=== PATIENT | male | born 1975 | race Caucasian/White ===

== ENCOUNTER 2017-07-02 13:13 | Emergency (ER) | payer OTHER, MEDICAID ==
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
[2017-07-02 13:33] LABS: % IMMATURE GRANULYOCYTES 0.5 % (0.0-1.1); ABSOLUTE IMMATURE GRANULOCYTES 0.03 10^3/uL (0.00-0.10); ADD DIFF? NO; ADD MORPH? NO; ADD SCAN? NO; ATYPICAL LYMPHOCYTE FLAG 10 (0-99); FRAGMENT RBC FLAG 0 (0-99); HEMATOCRIT 36.5 % (40.0-51.0); LEFT SHIFT FLG 0 (0-99); LIPEMIA HEMOLYSIS FLAG 90 (0-99); MEAN CELL HEMOGLOBIN 30.4 pg (27.9-34.1); MEAN CELL HEMOGLOBIN CONCENTR. 35.6 g/dL (32.4-36.7); MEAN CELL VOLUME 85.3 fL (81.5-99.8); PLATELET CLUMPS FLAG 60 (0-99); PLATELET COUNT 332 10^3/uL (150-400); RED BLOOD CELL COUNT 4.28 10^6/uL (4.40-6.38); RED CELL DISTRIBUTION WIDTH 13.1 % (11.5-15.2)
--- NOTE | 2017-07-02 13:34 | CPEKG ---
Heart Rate: 79 RR Interval: 759 P-R Interval: 156 QRSD Interval: 104 QT Interval: 372 QTC Interval: 427 P [place]: 52 QRS [place]: 39 T Wave [place]: 40 EKG Severity - NORMAL ECG - EKG Impression: SINUS RHYTHM Electronically Signed By: Rika Mcmullen 02-Jul-2017 15:20:40
[2017-07-02 13:50] LABS: ANION GAP 11 mEq/L (8-16); CALCIUM 9.5 mg/dL (8.5-10.4); CARBON DIOXIDE 20 mEq/l (22-31); CHLORIDE 109 mEq/L (97-110); CREATININE 1.4 mg/dL (0.7-1.3); GLOMERULAR FILTRATION RATE 56; GLUCOSE 89 mg/dL (70-100); POTASSIUM 4.5 mEq/L (3.5-5.2); SODIUM 140 mEq/L (134-144)
[2017-07-02 14:01] LABS: TROPONIN I < 0.012 ng/mL (0.000-0.034)
[2017-07-02 14:05] VITALS: TEMP 97.9
[2017-07-02] MEDS ORDERED: IOPAMIDOL (ISOVUE-300) 100 ML BTL ONE (16:48)
[2017-07-02] MEDS ORDERED: QUEtiapine FUMARATE 200 MG TAB PO ONE (17:06)
[2017-07-02 17:52] VITALS: BP 98/72; PULSE 74; RESP 16; O2SAT 96
--- NOTE | 2017-07-02 18:14 | ASMTCMCOM ---
CM Note CM Note Notes: Spoke with patient about recent move back to [place] and homeless resources. Patient moved from [place] about 1 week ago, "because frankly, I smoke pot for pain control." Patient states he is out of Seroquel, his last dose was yesterday. Patient requesting tonight's dose to be provided. Patient states he will plan on following up with [facility] tomorrow in order to establish primary care and mental health services. Patient has gone through the [facility] and has been staying at the [place] [facility]. Patient provided [facility] pass [facility] get [facility]. Patient provided information on [facility] homeless drop-in hours and is aware PC will be at the [facility] from 8a-10am tomorrow morning. This CM called [facility] ([phone]) to notify them of patient's arrival tonight and to confirm he was able to stay there. Patient does not have a cell phone or any way to be contacted. Patient is pleasant and appreciative of assistance. Date Signed: 07/02/2017 06:13 PM Electronically Signed By:Maria Antonia Mcneal RN
--- NOTE | 2017-07-02 18:16 | ASDISCHSUM ---
Discharge Information Plan Status:Homeless/Prison Medically Cleared to Leave: Discharge Date:07/02/2017 06:02 PM CM D/C Disposition:Against Medical Advice ADT D/C Disposition:Against Medical Advice Projected Discharge Date:07/02/2017 06:02 PM Transportation at D/C:Bus Ticket Discharge Delay Reason: Follow-Up Date:07/02/2017 06:02 PM Discharge Slot: Final Diagnosis: Placement Information Patient Contact Information Contact Name:ALBERT Relationship:Mother Address: Work Phone: City: [facility] Phone: State/Zip Code: Email: Financial Information Financial Class: Primary Plan Desc:MEDICARE OUTPATIENT Primary Plan Number:[id number] Secondary Plan Desc:MEDICAID HEALTH [place] OP Secondary Plan Number:[id number] Assessment Information LACE LACE Acuity / Level of Care Answers: No. Emergency dept visits in Answers: 1 last 6 months Score: 1 Date Signed: 07/02/2017 04:15 PM Electronically Signed By:Maria Antonia Mcneal RN [facility] CM Progress Note CM Note CM Note Notes: Spoke with patient about recent move back to [place] and homeless resources. Patient moved from [place] about 1 week ago, "because frankly, I smoke pot for pain control." Patient states he is out of Seroquel, his last dose was yesterday. Patient requesting tonight's dose to be provided. Patient states he will plan on following up with [facility] tomorrow in order to establish primary care and mental health services. Patient has gone through the [facility] and has been staying at the [facility]. Patient provided bus pass to get back to long term. Patient provided information on [facility] homeless drop-in hours and is aware PC will be at the long term from 8a-10am tomorrow morning. This CM called [facility] ([phone]) to notify them of patient's arrival tonight and to confirm he was able to stay there. Patient does not have a cell phone or any way to be contacted. Patient is pleasant and appreciative of assistance. Date Signed: 07/02/2017 06:13 PM Electronically Signed By:Maria Antonia Mcneal RN Intervention Information
== END 2017-07-02 18:02 | disposition left against medical advice (07) ==
LOC: EDUNIT#
DX: D64.9 Anemia, unspecified (principal); K64.9 Unspecified hemorrhoids
CPT/HCPCS: 71020; 74177; 93005; 99285; Q9967

== ENCOUNTER 2017-07-19 17:05 | Emergency (ER) | payer OTHER, MEDICAID ==
[2017-07-19 17:15] VITALS: BP 148/76; PULSE 56; RESP 20; TEMP 98.2; O2SAT 97
--- NOTE | 2017-07-19 17:37 | EDPHY ---
H & P Time Seen by Provider: 07/19/17 17:08 HPI/ROS: HPI Smoke marijuana. Anxious. 41-year-old male, homeless, was at the [facility] halfway. He reports that he smokes marijuana. He reports after this he felt very anxious and felt like his heart rate was very high. He called ambulance because he was concerned about his condition. He states that he moved here from [place] last summer. He reports that while in [place] or in the [facility] area he was a patient in a jail. He states that he has problems with chronic pain. He also states that he talked to his father earlier today and his father told him that he needed to be admitted to the hospital. No history of trauma or assault. ROS: Constitutional: No fever, no chills. As above. Eyes: No discharge. No changes in vision. ENT: No sore throat. No nasal congestion or rhinorrhea. Respiratory: No cough. No shortness of breath. Cardiac: No chest pain, no palpitations. Gastrointestinal: No abdominal pain, no vomiting, no diarrhea. Genitourinary: No hematuria. No dysuria or increased frequency with urination. Musculoskeletal: Chronic back pain. No neck pain. Skin: No rashes. Neurological: No headache. No focal weakness or altered sensation. Past medical history: Psychiatric problems, takes Abilify and Seroquel. Social history: Currently staying at the homeless halfway. Smoker. Denies alcohol. Physical Exam: General Appearance: Alert, no distress. This patient is responding to questions appropriately and in full sentences. This patient appears well- hydrated and well-nourished. Eyes: Pupils equal and round no pallor or injection. No lid edema, erythema or injection. Respiratory: There are no retractions, lungs are clear to auscultation with good air movement bilaterally. Cardiovascular: Regular rate and rhythm. No murmur. Gastrointestinal: Abdomen is soft and nontender, no masses, bowel sounds normal. No focal tenderness at McBurney's point. No Bateman sign. Neurological: Motor sensory function is grossly intact. Cranial nerves are normal. Gait is normal. Skin: Warm and dry, no rashes. Musculoskeletal: Neck is supple and nontender. Extremities are symmetrical. All joints range without pain or impingement. Psychiatric: No agitation. No depression. Database: EKG: Imaging: Procedures: Emergency department course: Vital signs reviewed. He is moderately hypertensive. Vital signs otherwise normal. Agitated. Very demanding of staff. I do not appreciate any emergent medical and condition regarding his visit today. We will provide him with resources to [facility]. He has a bed at the [facility] homeless halfway. Return to emergency department precautions were reviewed. All of his questions were answered. He was discharged in good condition. Differential Diagnosis: The differential diagnosis on this patient includes but is not limited to reaction to marijuana, anxiety, chronic pain, chronic psychiatric issues. Acute psychosis, homicidal ideation, suicidal ideation unlikely. This represents a partial list of diagnoses considered. These considerations are based on history, physical exam, past history, reassessment and diagnostic testing. Smoking Status: Heavy smoker Constitutional: Initial Vital Signs Temperature (C) 36.8 C 07/19/17 17:05 Heart Rate 56 L 07/19/17 17:05 Respiratory Rate 20 07/19/17 17:05 Blood Pressure 148/76 H 07/19/17 17:05 O2 Sat (%) 97 07/19/17 17:05 O2 Delivery Mode Room Air Allergies/Adverse Reactions: trazodone Allergy (Verified 07/19/16 00:29) Home Medications: Medication Instructions Recorded [facility] 07/19/16 QUEtiapine FUMARATE [Seroquel 600 mg PO DAILY #7 tab 07/19/16 300mg (*)] Seroquel 07/19/16 Departure - Departure Disposition: Home, Routine, Self-Care Clinical Impression: Adverse reaction to cannabis, Anxiety Condition: Good Instructions: Anxiety (ED) Additional Instructions: Read and follow provided instructions. [facility] within the next week for evaluation and ongoing medical care Continue taking your medication as prescribed. Return to the emergency department for worsening symptoms or other serious concerns. Referrals: [facility],. [Clinic] - As per Instructions [facility]. [Clinic] - As per Instructions
== END 2017-07-19 17:46 | disposition home or self-care (01) ==
LOC: EDUNIT#
DX: F41.9 Anxiety disorder, unspecified (principal); T40.7X5A Adverse effect of cannabis (derivatives), initial encounter; F17.200 Nicotine dependence, unspecified, uncomplicated

== ENCOUNTER 2017-08-22 10:27 | Emergency (ER) | payer OTHER, MEDICAID ==
[2017-08-22 10:38] VITALS: TEMP 97.7
[2017-08-22 10:58] LABS: PLATELET COUNT 246 10^3/uL (150-400)
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
[2017-08-22] MEDS ORDERED: HALOPERIDOL LACT 5 MG/ML INJ IM ONE (13:03)
[2017-08-22] MEDS ORDERED: HALOPERIDOL LACT 5 MG/ML INJ ONE (13:09)
[2017-08-22] MEDS ORDERED: LORazepam 2 MG/ML INJ ONE (13:16)
[2017-08-22] MEDS ORDERED: LORazepam 2 MG/ML INJ IM ONE (13:28)
[2017-08-22 16:44] VITALS: BP 133/98; PULSE 70; RESP 16; O2SAT 97
== END 2017-08-22 16:45 | disposition home or self-care (01) ==
LOC: EDUNIT#
DX: R45.1 Restlessness and agitation (principal); F17.200 Nicotine dependence, unspecified, uncomplicated
CPT/HCPCS: 96372; 99284; 99285; J1630; J2060; 80305; G0480

== ENCOUNTER 2017-09-03 02:04 | Emergency (ER) | payer OTHER, MEDICAID ==
--- NOTE | 2017-09-03 02:09 | EDPHY ---
H & P HPI/ROS: HPI CHIEF COMPLAINT: Multiple complaints including cough, abdominal pain, anxiety, hallucinations, malaise HISTORY OF PRESENT ILLNESS: Patient very pleasant 41-year-old male, homeless, history of PTSD and bipolar, presents emergency room by EMS from multitude of complaints. Patient reports that that he feels anxious, additionally he is feeling fatigued, additionally reports a cough with productive clear sputum, additionally reports some intermittent abdominal pain additionally reports pain in his chest when he coughs. He denies fever. Denies vomiting. Denies diarrhea. States he decided call 911 tonight is feels very anxious. Patient denies wanting to hurt himself or anybody else. Denies suicidal or homicidal ideation. Recently here in the emergency room for agitation. Was on M1 hold subsequently lifted Past Medical History: PTSD and bipolar disorder Past Surgical History: No recent surgery Social History: Homeless, daily tobacco use, denies daily alcohol or illicit drugs. Family History: Noncontributory. ROS REVIEW OF SYSTEMS: A comprehensive 10 point review of systems is otherwise negative aside from elements mentioned in the history of present illness. Exam Constitutional appears nontoxic, smells of tobacco, obese, triage nursing summary reviewed, vital signs reviewed, awake/alert. Eyes normal conjunctivae and sclera, EOMI, PERRLA. HENT poor dentition, normal inspection, atraumatic, moist mucus membranes, no epistaxis, neck supple/ no meningismus, no raccoon eyes. Respiratory faint wheezing bilaterally, clear to auscultation bilaterally, normal breath sounds, no respiratory distress, no wheezing. Cardiovascular rate normal, regular rhythm, no murmur, no edema, distal pulses normal. Gastrointestinal soft, non-tender, no rebound, no guarding, normal bowel sounds, no distension, no pulsatile mass. Genitourinary no CVA tenderness. Musculoskeletal no midline vertebral tenderness, full range of motion, no calf swelling, no tenderness of extremities, no meningismus, good pulses, neurovascularly intact. Skin dirt underneath fingernails, pink, warm, & dry, no rash, skin atraumatic. Neurologic awake, alert and oriented x 3, AAOx3, moves all 4 extremities equally, motor intact, sensory intact, CN II-XII intact, normal cerebellar, normal vision, normal speech. Psychiatric normal mood/affect. Heme/Lymph/Immune no lymphadenopathy. Differential Diagnosis: Includes but is not limited to in a particular order acute anxiety, pneumonia, upper respiratory tract infection viral syndrome, electrolyte disturbance, dehydration Medical Decision Making: Plan for this patient IV establishment IV fluid bolus , DuoNeb breathing treatment for coughing faint wheezing diffuse lung seth, chest x-ray to rule pneumonia, EKG, drug screen, Ativan for anxiety and re- evaluate. Re-evaluation: EKG interpretation by me on record in [employer] system. Impression time of EKG 3:06 a.m., sinus rhythm rate of 84. Nonspecific intraventricular conduction delay. Otherwise no acute ischemic change appreciated. 0424AM: Re-examination at this time patient resting comfortably. I have reviewed his chest x-ray EKG and blood work. I am not finding anything acute or concerning. Patient does feel better after Ativan p.o.. I went to go discharge me became somewhat agitated with me started yelling at me. In even to the point of threatening me. He states he would like to speak with mental health which I will provide him. He is not suicidal or homicidal. I do not feel that he needs to be placed on M1 hold. Will have mental health come and talk with him most likely provide him outpatient resources. Patient does not appear gravely disabled. 0459: This time patient is now threatening me in threatening to kill me. I have asked the police to come here and help with this current situation the patient is yelling at me and screaming and threatening me he is telling me is going to kill me. He states that when he sees me outside of the hospital he will threatened to kill me. Additionally reports that he went to leave here he is going to harm me. 0506: This patient has been aggressively threatening me and threatened to kill me. Additionally reports that he sees me outside in [place] he will kill me. I have asked [place] [employer] to come and help with this current situation. I have asked them to safely escort off the property. Source: Patient, EMS - Medical/Surgical History Hx Asthma: No Hx Chronic Respiratory Disease: No Hx Diabetes: No Hx Cardiac Disease: No Hx Renal Disease: No Hx Cirrhosis: No Hx Alcoholism: No Hx HIV/AIDS: No Hx Splenectomy or Spleen Trauma: No Other PMH: BIPOLAR, HERNIATED DISCS LOW BACK.legionairs disease - Social History Smoking Status: Heavy smoker Constitutional: Initial Vital Signs Temperature (C) 36.5 C 01/14/18 02:09 Heart Rate 83 09/03/17 02:09 Respiratory Rate 17 09/03/17 02:09 Blood Pressure 141/91 H 09/03/17 02:09 O2 Sat (%) 96 09/03/17 02:09 O2 Delivery Mode Room Air Allergies/Adverse Reactions: trazodone Allergy (Verified 09/03/17 02:08) Home Medications: Medication Instructions Recorded Seroquel 07/19/16 Medical Decision Making - Data Points Laboratory Results: Laboratory Results 09/03/17 02:34 09/03/17 02:34 09/03/17 09/03/17 02:34 02:34 WBC 6.81 10^3/uL 10^3/uL (3.80-9.50) RBC 4.61 10^6/uL 10^6/uL (4.40-6.38) Hgb 13.8 g/dL g/dL (13.7-17.5) Hct 40.0 % % (40.0-51.0) MCV 86.8 fL fL (81.5-99.8) MCH 29.9 pg pg (27.9-34.1) MCHC 34.5 g/dL g/dL (32.4-36.7) RDW 13.5 % % (11.5-15.2) Plt Count 294 10^3/uL 10^3/uL (150-400) MPV 8.8 fL fL (8.7-11.7) Neut % (Auto) 67.4 % % (39.3-74.2) Lymph % (Auto) 24.2 % % (15.0-45.0) [place] % (Auto) 5.9 % % (4.5-13.0) Eos % (Auto) 1.5 % % (0.6-7.6) Baso % (Auto) 0.6 % % (0.3-1.7) Nucleat RBC Rel Count 0.0 % % (0.0-0.2) Absolute Neuts (auto) 4.59 10^3/uL 10^3/uL (1.70-6.50) Absolute Lymphs (auto) 1.65 10^3/uL 10^3/uL (1.00-3.00) Absolute Monos (auto) 0.40 10^3/uL 10^3/uL (0.30-0.80) Absolute Eos (auto) 0.10 10^3/uL 10^3/uL (0.03-0.40) Absolute Basos (auto) 0.04 10^3/uL 10^3/uL (0.02-0.10) Absolute Nucleated RBC 0.00 10^3/uL 10^3/uL (0-0.01) Immature Gran % 0.4 % % (0.0-1.1) Immature Gran # 0.03 10^3/uL 10^3/uL (0.00-0.10) Sodium 146 mEq/L H mEq/L (135-145) Potassium 4.5 mEq/L mEq/L (3.5-5.2) Chloride 110 mEq/L mEq/L (97-110) Carbon Dioxide 23 mEq/l mEq/l (22-31) Anion Gap 13 mEq/L mEq/L (8-16) BUN 26 mg/dL H mg/dL (7-23) Creatinine 1.3 mg/dL mg/dL (0.7-1.3) Estimated GFR > 60 Glucose 95 mg/dL mg/dL (70-100) Calcium 9.8 mg/dL mg/dL (8.5-10.4) Total Bilirubin 0.6 mg/dL mg/dL (0.1-1.4) Conjugated Bilirubin 0.3 mg/dL mg/dL (0.0-0.5) Unconjugated Bilirubin 0.3 mg/dL mg/dL (0.0-1.1) AST 17 IU/L IU/L (17-59) ALT 26 IU/L IU/L (21-72) Alkaline Phosphatase 100 IU/L IU/L (38-126) Troponin I 0.025 ng/mL ng/mL (0.000-0.034) NT-Pro-B Natriuret Pep 33 pg/mL pg/mL (0-125) Total Protein 7.2 g/dL g/dL (6.3-8.2) Albumin 4.3 g/dL g/dL (3.5-5.0) Ethyl Alcohol < 10 mg/dL mg/dL (0-10) Medications Given: Discontinued Medications Albuterol/Ipratropium (Duoneb) 3 ml IH EDNOW ONE Stop: 09/03/17 02:14 Last Admin: 09/03/17 02:55 Dose: 3 ml Sodium Chloride (Ns) 500 mls @ 1,000 mls/hr IV EDNOW ONE PRN Reason: Protocol Stop: 09/03/17 02:42 Last Admin: 09/03/17 02:54 Dose: 500 mls Lorazepam (Ativan) 1 mg PO ONCE ONE Stop: 09/03/17 02:15 Last Admin: 09/03/17 02:54 Dose: 1 mg Departure - Departure Disposition: Law Enforcement/Court/Half-Way Clinical Impression: Cough, Anxiety Condition: Good Instructions: Cold Symptoms (ED), Anxiety (ED) Additional Instructions: 1. Patient is medically cleared to go to halfway. Referrals: Patient,NotPresent [Unknown] - As per Instructions
[2017-09-03] MEDS ORDERED: IPRATROPIUM/ALBUTEROL 3 ML DEYVIAL IH ONE (02:13)
[2017-09-03] MEDS ORDERED: NS 500 ML IV ONE (02:13)
[2017-09-03 02:14] VITALS: TEMP 97.7
[2017-09-03] MEDS ORDERED: LORazepam 1 MG TAB PO ONE (02:14)
[2017-09-03 02:44] LABS: PLATELET COUNT 294 10^3/uL (150-400)
--- NOTE | 2017-09-03 03:08 | CPEKG ---
Heart Rate: 84 RR Interval: 714 P-R Interval: 168 QRSD Interval: 110 QT Interval: 400 QTC Interval: 473 P [place]: 52 QRS [place]: 42 T Wave [place]: 24 EKG Severity - ABNORMAL ECG - EKG Impression: SINUS RHYTHM EKG Impression: NONSPECIFIC INTRAVENTRICULAR CONDUCTION DELAY EKG Impression: BORDERLINE INFERIOR Q WAVES Electronically Signed By: Jonnathan Bryson 03-Sep-2017 06:33:47
[2017-09-03 04:19] VITALS: BP 126/86
[2017-09-03 05:16] VITALS: PULSE 76; RESP 18; O2SAT 96
== END 2017-09-03 05:14 ==
LOC: EDUNIT#
DX: F41.9 Anxiety disorder, unspecified (principal); R05 Cough; F17.200 Nicotine dependence, unspecified, uncomplicated; E86.9 Volume depletion, unspecified
CPT/HCPCS: G0480